=== PATIENT | male | born 2000 | race African-American/Black ===

== ENCOUNTER 2020-10-26 23:37 | Emergency (ER) | payer MEDICAID ==
[~2020-10-26] VITALS: Ht 170.2 cm; Wt 59.1 kg
[2020-10-26 23:39] VITALS: BP 124/76
== END 2020-10-27 01:35 | disposition left against medical advice (07) ==
LOC: EMS 23:40
DX: S09.90XA Unspecified injury of head, initial encounter (principal); Z53.21 Procedure and treatment not carried out due to patient leaving prior to being seen by health care provider; X58.XXXA Exposure to other specified factors, initial encounter; Y93.89 Activity, other specified; Y92.89 Other specified places as the place of occurrence of the external cause; Y99.8 Other external cause status